=== PATIENT | female | born 1985 | race Two or more races ===

== ENCOUNTER 2019-01-15 13:18 | Outpatient (CLI) | payer BC ==
[~2019-01-15] VITALS: Ht 170.2 cm; Wt 68.1 kg
[2019-01-15 16:23] VITALS: BP 99/54
== END 2019-01-15 23:59 | disposition home or self-care (01) ==
LOC: LDOP 13:18
PROVIDERS: ATTEND Obstetrics & Gynecology
DX: O62.8 Other abnormalities of forces of labor (principal); R03.0 Elevated blood-pressure reading, without diagnosis of hypertension; Z3A.30 30 weeks gestation of pregnancy
CPT/HCPCS: 59025; 76815; 81001; 82570; 84156; 87086; 87147; 99201; J3105; G0463